=== PATIENT | male | born 1950 | race Caucasian/White ===

== ENCOUNTER → 2024-07-07 | Outpatient (REF) | payer MEDICAID, SELFPAY ==
[2024-07-07 07:51] LABS: Hematocrit 33.4 % (40-54); Hemoglobin 11.2 g/dL (13.0-16.5); Mean Corp Hgb Conc 33.5 g/dL (32-36); Mean Corpuscular Hgb 31.6 pg (27.0-32.0); Mean Corpuscular Volume 94.4 fL (80-94); Mean Platelet Vol. 10.8 fl (6.2-12.0); Platelet Count 349 K/mm3 (150-450); RBC Distribution Width CV 13.9 % (11.6-14.6); RBC Distribution Width SD 47.8 fl (35.1-43.9); Red Blood Count 3.54 M/mm3 (4.6-6.2)
[2024-07-07 08:27] LABS: Anion Gap 9 (5-15); BUN 46 mg/dL (4-19); BUN/Creat Ratio 17.3 RATIO (10-20); Calcium,Total 8.5 mg/dL (7.6-11.0); Carbon Dioxide 20.1 mmol/L (21.0-32.0); Chloride 106 mmol/L (98-108); Creatinine, Serum 2.66 mg/dL (0.70-1.20); EST Glomerular Filtration Rate 25 (>60); Glucose 82 mg/dL (70-99); Potassium 4.2 mmol/L (3.3-5.1); Sodium Level 135 mmol/L (133-145)
== END | disposition home or self-care (01) ==
LOC: OLS.SANC 06:00
DX: E11.22 Type 2 diabetes mellitus with diabetic chronic kidney disease (principal); I13.0 Hypertensive heart and chronic kidney disease with heart failure and stage 1 through stage 4 chronic kidney disease, or unspecified chronic kidney disease; I50.9 Heart failure, unspecified; E78.5 Hyperlipidemia, unspecified
CPT/HCPCS: 36415; 80048; 85027